=== PATIENT | female | born 1950 | race Hispanic/Latino ===

== ENCOUNTER 2018-07-17 13:15 | Emergency (ER) | payer BC ==
[~2018-07-17] VITALS: Ht 162.6 cm; Wt 68.0 kg
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
[2018-07-17] MEDS ORDERED: HYDROCODONE/APAP 7.5MG-325MG 1 EA TAB PO PRN (13:45)
--- NOTE | 2018-07-17 14:20 | NUR ---
norco 7.5mg given for r leg pain 12/08.
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
--- NOTE | 2018-07-17 17:18 | Diagnostic Imaging Report ---
RIGHT TIBIA/FIBULA X-RAY - 4 VIEWS HISTORY: ^r/o fx ^[id number] ^[id number] COMPARISON: None available. FINDINGS: Bones: No acute displaced fracture. Osseous alignment is within normal limits. Joints: The joint spaces are well-maintained. Soft tissues: The soft tissues appear unremarkable. IMPRESSION: No acute radiographic abnormality. Signed by: Dr. Virginie Vilalnueva M.D. on 07/17/2018 5:15 PM
== END 2018-07-17 19:19 | disposition home or self-care (01) ==
LOC: ER 13:15
DX: S80.11XA Contusion of right lower leg, initial encounter (principal); M54.2 Cervicalgia; M47.892 Other spondylosis, cervical region; V03.10XA Pedestrian on foot injured in collision with car, pick-up truck or van in traffic accident, initial encounter; Y92.007 Garden or yard of unspecified non-institutional (private) residence as the place of occurrence of the external cause; I10 Essential (primary) hypertension
CPT/HCPCS: 72125; 99284